=== PATIENT | female | born 2000 ===

== ENCOUNTER 2024-12-02 16:04 | Outpatient (REF) | payer BC, SELFPAY ==
--- NOTE | 2024-12-02 09:30 | PAPFT_PTH ---
PATIENT: Heather Berger LOC: [facility]#:[id number] AGE/SX: 24/F ROOM: RE12/02/[address]: LUIS A: 2000 BED: DIS: 12/02/2024 SPEC #: [id number] RECD: 12/02/24 17:33 STATUS: COLBY IHSAN #: [id number] UZMA: 12/02/24 09:[address]: Patti Galvan DEPT: [facility] Cytology RECD BY: Nissa Moreira ENTERED: 12/02/24 17:34 SP TYPE: PAPFT MARY DR: Unknown,Unknown Tissues: 1 - CX/ENDOCX FOR PAP SMEARS Procedures: PAP THIN PREP/[facility] Screening HPV DNA PROBE Comments: [id number] (HPV 16 & 18/45)
== END 2024-12-02 16:05 | disposition home or self-care (01) ==
LOC: NCHCN 16:04
PROVIDERS: Visit Provider Family Medicine
DX: Z12.4 Encounter for screening for malignant neoplasm of cervix (principal)
CPT/HCPCS: 88142; 87624